=== PATIENT | male | born 1945 | race Caucasian/White ===

== ENCOUNTER 2018-06-25 21:03 | Emergency (ER) | payer MEDICARE, OTHER ==
[~2018-06-25] VITALS: Ht 180.3 cm; Wt 122.5 kg
[2018-06-25] MEDS ORDERED: LISI20 PO (21:24)
[2018-06-25] MEDS ORDERED: CHOLESTEROL (21:25)
[2018-06-25] MEDS ORDERED: ANTIBIOTICS (21:25)
== END 2018-06-26 00:10 | disposition home or self-care (01) ==
LOC: ER 21:03
DX: S01.81XA Laceration without foreign body of other part of head, initial encounter (principal); Z79.899 Other long term (current) drug therapy; W22.8XXA Striking against or struck by other objects, initial encounter
CPT/HCPCS: 12011; 99282

== ENCOUNTER 2020-06-26 21:12 | Inpatient (IN) | payer MEDICARE, OTHER ==
[~2020-06-26] VITALS: Ht 182.9 cm; Wt 172.4 kg
[~2020-06-26 21:12] MED LIST: ANTIBIOTICS; ATOR40TA PO; LISI20 PO
[2020-06-26 21:55] LABS: BASOPHILS ABSOLUTE AUTO 0.05 K/mm3 (0.00-0.23); BASOPHILS PERCENT AUTO 1 % (0-2); EOSINOPHILS ABSOLUTE AUTO 0.33 K/mm3 (0.00-0.68); EOSINOPHILS PERCENT AUTO 4 % (0-6); Hematocrit 46.2 % (37.0-53.0); IMMATURE GRAN ABSOLUTE AUTO 0.03 K/mm3 (0.00-0.10); IMMATURE GRAN PERCENT AUTO 0 % (0-1); LYMPHOCYTES PERCENT AUTO 18 % (21-46); MONOCYTES ABSOLUTE AUTO 1.04 K/mm3 (0.16-1.47); MONOCYTES PERCENT AUTO 13 % (4-13); Mean Corpuscular HGB 30.7 pg (26.0-34.0); Mean Corpuscular HGB Conc 32.5 g/dL (31.5-36.5); Mean Corpuscular Volume 95 fL (80-100); Mean Platelet Volume 9.9 fL (9.1-12.4); NEUTROPHILS ABSOLUTE AUTO 5.03 K/mm3 (1.96-9.15); NEUTROPHILS PERCENT AUTO 64 % (41-73); Platelet Count 287 K/mm3 (150-400); RDW Coefficient Variation 14.1 % (11.7-14.2); RDW Standard Deviation 49.1 fL (35.1-46.3); Red Blood Cell Count 4.89 M/mm3 (4.30-5.90); White Blood Cell Count 7.88 K/mm3 (4.00-11.30)
[2020-06-26 22:16] LABS: Alanine Aminotransfer (ALT/SGP 24 U/L (12-78); Albumin, Blood 3.2 g/dL (3.4-5.0); Albumin/Globulin Ratio 0.8 (0.8-1.8); Alk Phos 112 U/L (50-136); Anion Gap 6 mmol/L (6-16); Aspartate Aminotrans (AST/SGOT 21 U/L (12-37); Bilirubin, Total 0.4 mg/dL (0.1-1.0); Blood Urea Nitrogen 13 mg/dL (8-24); Bun/Creatinine Ratio 12.5 (12.0-20.0); CO2, Blood 24 mmol/L (21-32); Calcium, Blood 8.6 mg/dL (8.5-10.1); Chloride, Blood 113 mmol/L (98-108); Creatinine, Blood 1.04 mg/dL (0.60-1.20); Globulin, Blood 4.2 g/dL (2.2-4.0); Glomerular Filtration Rate >60 (60-); Glucose, Blood 107 mg/dL (70-99); Potassium, Blood 4.5 mmol/L (3.5-5.5); Sodium, Blood 143 mmol/L (136-145); Total Protein, Blood 7.4 g/dL (6.4-8.2); Troponin I 0.129 ng/mL (0.000-0.040)
[2020-06-26 23:31] LABS: CHOL/HDL RATIO 5.1; Cholesterol 177 mg/dL (50-200); HDL Cholesterol 35 mg/dL (>39); LDL/HDL RATIO 2.6; Low Density Lipoprotein Chol 91 mg/dL (0-110); Triglycerides 257 mg/dL (30-160); Very Low Density Lipoprot Chol 51 mg/dL (6-32)
--- NOTE | 2020-06-27 05:42 | NUR ---
SHIFT SUMMARY: LIZA IS A&OX4. VSS, NO ACUTE EVENTS OVERNIGHT. HE IS UTILIZING THE CPAP PROVIDED BY RT. HE DENIES CHEST PAIN, SOB, PRESSURE, OR ARM/JAW PAIN. HE HAS URINATED FREQUENTLY AFTER RECEIVING LASIX. NSR PER TELE MONITOR. PT STATES THAT HE HAS BEEN NPO SINCE FINISHING DINNER AT 1800 YESTERDAY EVENING. MACHINE OPERATOR PICKER PHYSICIAN NOTIFIED OF CRITICAL TROPONIN LEVEL OF 4.06, NO NEW ORDERS AT THIS TIME. LIZA USES HIS CALL LIGHT APPROPRIATELY. HE IS LYING IN BED WITH THE CALL LIGHT IN REACH. WILL REPORT TO DAY SHIFT RN.
--- NOTE | 2020-06-27 10:34 | NUR ---
PT ALERT AND ORIENTED. VITALS HRR SINUS WITH PAC'S TO SINUS EVONNE 50-60'S, BP SYSTOLIC 150-160'S, SATS ABOVE 95% ON RA, AFEBRILE. PT DENIES ANY CHEST PAIN THIS MORNING LAST TROP 4.060, DR MOLINA SAW PT THIS MORNING DISCUSSED THE NEED FOR ANGIOGRAM TODAY, PT WAS KEPT NPO. AT BEDSIDE AWARE OF THE PLANS. AWAITING FOR DIAL MOUNTER PROCEDURE.
--- NOTE | 2020-06-27 12:08 | NUR ---
PT TAKEN TO PATROL DRIVER FOR PROCEDURE AT THIS TIME.
--- NOTE | 2020-06-27 13:56 | NUR ---
PT CAME BACK FROM PROGRAM WRITER WITH RIGHT RADIAL ACCESS SITE. TR BAND WITH 10CC OF AIR IN PLACE. SITE INTACT WITH NO HEMATOMA/BLEEDING NOTED. PT HAS MULTIPLE VESSEL DSE AND IS FOR COBRA TRANSFER TO [facility]. HEPARIN RESTARTED PER ORDER AT 13U/KG/HR. NS AT 200MLS/HR FOR CONTRAST FLUSH. VITALS HRR SINUS EVONNE ON THE 50'S, BP SYSTOLIC 140-150'S, SATS ABOVE 95% ON RA. AWAITING FOR COVID RESULT AND ROOM FOR TRANSFER, AT BEDSIDE AWARE OF ALL THE PLAN. WILL MONITOR UNTIL TRANSFER.
--- NOTE | 2020-06-27 15:21 | NUR ---
PT TRANSPORTED TO [facility] VIA AMBULANCE. HEPARIN GTT RUNNING AT 13UKG/HR. 6CC OF AIR LEFT IN THE TR BAND, 4 CCS OUT. REPORT GIVEN TO KIRT CARR AT [facility].
== END 2020-06-27 15:17 | disposition short-term general hospital (02) | DRG 280 ==
LOC: ER 21:12 → PCU 23:06
PROVIDERS: Emergency Medicine; ADMIT Family Medicine
PROC: 4A023N7 Measurement of Cardiac Sampling and Pressure, Left Heart, Percutaneous Approach (ICD-10-PCS; principal; 2020-06-27)
PROC: B211YZZ Fluoroscopy of Multiple Coronary Arteries using Other Contrast (ICD-10-PCS; 2020-06-27)
DX: I21.4 Non-ST elevation (NSTEMI) myocardial infarction (principal); I50.33 Acute on chronic diastolic (congestive) heart failure; I16.1 Hypertensive emergency; I11.0 Hypertensive heart disease with heart failure; E78.5 Hyperlipidemia, unspecified; G47.33 Obstructive sleep apnea (adult) (pediatric); E66.01 Morbid (severe) obesity due to excess calories
CPT/HCPCS: 36415; 71045; 80053; 80061; 83880; 84484; 85025; 85730; 93005; 93010; 93458; 94660; 94762; 96374; 99152; 99153; 99285-25; C1769; C1894; C8929; J1644; J1940; J2250; J3010; J7030; J7050; Q9957; Q9967; U0003

== ENCOUNTER 2020-12-27 06:58 | Day surgery (SDC) | payer MEDICARE, OTHER ==
[~2020-12-27] VITALS: Ht 180.3 cm; Wt 183.5 kg
[~2020-12-27 06:58] MED LIST changes: +AMLO5 PO; +ASPI81CH PO; +CLOP75 PO; +FOLI1 PO; +FURO20 PO; +METO100ER PO; +OMEGA 3 PO; +SENNA LAXATIVE8.6 MG PO; +Vitamin E200 UNIT PO
--- NOTE | 2020-12-27 07:39 | NUR ---
PT TO SDS VIA WC. History, Chart, Medications and Allergies reviewed before start of procedure. Lungs clear T/O to Auscultation, INCRASED SOB c EXERTION. Patient confirms NPO status and agrees with scheduled surgery. L WRIST CLIPPED AND PREPPED.
--- NOTE | 2020-12-27 08:10 | NUR ---
12/27/20 0810 KIARRA,ELDER TOURNIQUET PLACED ON PTS LEFT FOREARM BY DR WISDOM PRIOR TO PROCEDURE. TOURNIQUET UP TO 250 AT 0754, DOWN AT 0800.
--- NOTE | 2020-12-27 08:26 | NUR ---
PT AWAKE AND FOLLOWING COMMANDS. PT DENIES PAIN. PT DOES NOT WANT PO FLUIDS. REPOSTIONED TO SEMI [place]EN WITH ASSISTANCE. LEFT HAND PINK, WARM WITH CAP REFILL LESS THAN 3 SECONDS. HAND ELEVATED ABOVE HEART. PROVIDED ICE PACK TO LEFT WRIST. Dressing to procedure site clean, dry, intact with no visible drainage, swelling, erythema or bruising noted.
--- NOTE | 2020-12-27 08:56 | NUR ---
CIRCULATION REMAINS INTACT TO LEFT LOWER EXTREMITY. Patient up to Ambulate independently. Gait steady. Discharge instructions reviewed with patient. Patient verbalizes understanding. Copy given to patient to take home. Dressing to procedure site clean, dry, intact with no visible drainage, swelling, erythema or bruising noted. Patient States Post-Procedure ride home has been arranged. Discharged via wheelchair to private car for ride home. DR WISDOM INSTRUCTED PT TO RESTART PLAVIX TODAY AND ALL OTHER MEDS. ALL BELONINGS RETURNED TO PATIENT.
== END 2020-12-27 09:11 | disposition home or self-care (01) ==
LOC: ORSCMMR 06:58 → ORD 07:30 → ORSCMMR 07:30
PROVIDERS: Orthopaedic Surgery
PROC: 01N50ZZ Release Median Nerve, Open Approach (ICD-10-PCS; principal; 2020-12-27 07:30)
DX: G56.02 Carpal tunnel syndrome, left upper limb (principal); I10 Essential (primary) hypertension; E78.5 Hyperlipidemia, unspecified; I25.10 Atherosclerotic heart disease of native coronary artery without angina pectoris; I25.2 Old myocardial infarction; G47.33 Obstructive sleep apnea (adult) (pediatric); Z87.891 Personal history of nicotine dependence; E66.01 Morbid (severe) obesity due to excess calories; Z68.43 Body mass index [BMI] 50.0-59.9, adult; Z79.01 Long term (current) use of anticoagulants; Z79.82 Long term (current) use of aspirin; Z79.899 Other long term (current) drug therapy
CPT/HCPCS: J0690; J2250; J2704; J3010; J7120

== ENCOUNTER 2022-09-01 10:24 | Inpatient (IN) | payer MEDICARE, OTHER ==
[~2022-09-01] VITALS: Ht 182.9 cm; Wt 178.3 kg
[~2022-09-01 10:24] MED LIST changes: -OMEGA 3 PO; +OMEGA-3 FISH O1 EA13 PO; +VITAMIN E90 M1 PO; -Vitamin E200 UNIT PO
[2022-09-01 12:00] LABS: BASOPHILS ABSOLUTE AUTO 0.04 K/mm3 (0.00-0.23); BASOPHILS PERCENT AUTO 0 % (0-2); EOSINOPHILS ABSOLUTE AUTO 0.01 K/mm3 (0.00-0.68); EOSINOPHILS PERCENT AUTO 0 % (0-6); Hematocrit 46.6 % (37.0-53.0); Hemoglobin 15.7 g/dL (13.5-17.5); IMMATURE GRAN ABSOLUTE AUTO 0.07 K/mm3 (0.00-0.10); IMMATURE GRAN PERCENT AUTO 1 % (0-1); LYMPHOCYTES ABSOLUTE AUTO 0.71 K/mm3 (0.84-5.20); LYMPHOCYTES PERCENT AUTO 6 % (21-46); MONOCYTES ABSOLUTE AUTO 1.42 K/mm3 (0.16-1.47); MONOCYTES PERCENT AUTO 11 % (4-13); Mean Corpuscular HGB Conc 33.7 g/dL (31.5-36.5); Mean Corpuscular Volume 92 fL (80-100); Mean Platelet Volume 9.3 fL (9.1-12.4); NEUTROPHILS ABSOLUTE AUTO 10.29 K/mm3 (1.96-9.15); NEUTROPHILS PERCENT AUTO 82 % (41-73); Platelet Count 264 K/mm3 (150-400); RDW Coefficient Variation 14.5 % (11.7-14.2); RDW Standard Deviation 49.4 fL (35.1-46.3); Red Blood Cell Count 5.07 M/mm3 (4.30-5.90); White Blood Cell Count 12.54 K/mm3 (4.00-11.30)
[2022-09-01 12:25] LABS: Albumin, Blood 3.2 g/dL (3.4-5.0); Albumin/Globulin Ratio 0.7 (0.8-1.8); Bilirubin, Total 0.7 mg/dL (0.1-1.0); Bun/Creatinine Ratio 20.2 (12.0-20.0); Calcium, Blood 9.1 mg/dL (8.5-10.1); Creatinine, Blood 0.99 mg/dL (0.60-1.20); Globulin, Blood 4.7 g/dL (2.2-4.0); Potassium, Blood 4.1 mmol/L (3.5-5.5); Total Protein, Blood 7.9 g/dL (6.4-8.2)
[2022-09-01] MEDS ORDERED: GLUC500 PO (13:04)
[2022-09-01 13:13] LABS: Source, Urine Clean Catch
[2022-09-01 13:21] LABS: Appearance, Urine Clear (Clear); Bilirubin, Urine Neg (Neg); Blood, Urine 3+ (Neg); Color, Urine Yellow (P-Yellow); Glucose Qualitative, Urine Neg (Neg); Ketones, Urine Neg (Neg); Leukocyte Esterase, Urine Neg (Neg); Nitrite, Urine Neg (Neg); Protein, Urine 3+ (Neg); Urobilinogen, Urine NORM (Normal)
[2022-09-01 13:30] LABS: Amorphous Light (0-Heavy); Bacteria Few /hpf; Hyaline Casts 0-2 /lpf (0-2); Mucus Mod (0-Heavy); Red Blood Cells, Urine 0-2 /hpf (0-2); Squamous Epithelial Cells Few /hpf (Few); White Blood Cells, Urine 0-2 /hpf (0-5)
[2022-09-01 13:31] LABS: Renal Epithelial Rare /hpf (0-Rare)
[2022-09-01 13:43] LABS: Influenza A, PCR NEGATIVE (NEGATIVE); Influenza B, PCR NEGATIVE (NEGATIVE); Resp Syncytial Virus, PCR NEGATIVE (NEGATIVE); SARS-Cov-2 (COVID-19) PCR, MMC NEGATIVE (NEGATIVE)
[2022-09-01] MEDS ORDERED: AMOCLA875 PO (14:22)
--- NOTE | 2022-09-01 18:16 | NUR ---
Arrived to floor from ED. Report received from LILLY Blake. A/O, transferred self to bed. 1p FWW to bathroom. 2nd RN skin check performed by LILLY Resendiz. Settled to room. Dinner tray ordered, eating well independently. Nystatin also ordered for yeasty infection on gluteal cleft per T.O. from Dr. Stewart. Patient refusing night time dose of lasix, states only takes 20mg in the morning and he did not want to be up all night. HR between 100-115's. When patient was eating, HR did touch up to 130's briefly without sustaining per tele. 2L O2. to bring in CPAP.
[2022-09-02 05:21] LABS: Hematocrit 43.6 % (37.0-53.0); Hemoglobin 14.2 g/dL (13.5-17.5); Mean Corpuscular HGB 30.8 pg (26.0-34.0); Mean Corpuscular HGB Conc 32.6 g/dL (31.5-36.5); Mean Corpuscular Volume 95 fL (80-100); Mean Platelet Volume 9.7 fL (9.1-12.4); Platelet Count 241 K/mm3 (150-400); RDW Coefficient Variation 14.7 % (11.7-14.2); RDW Standard Deviation 51.5 fL (35.1-46.3); Red Blood Cell Count 4.61 M/mm3 (4.30-5.90); White Blood Cell Count 11.46 K/mm3 (4.00-11.30)
[2022-09-02 06:00] LABS: Bun/Creatinine Ratio 18.1 (12.0-20.0); Calcium, Blood 8.4 mg/dL (8.5-10.1); Creatinine, Blood 1.16 mg/dL (0.60-1.20); Potassium, Blood 4.1 mmol/L (3.5-5.5)
--- NOTE | 2022-09-02 12:01 | NUR ---
PT IS ON ROOM AIR. SPOT CHECKS, HE IS ON CONTINUOUS TELEMETRY, INDICATE THAT HE IS MAINTAING SATS >94% WITH HEART RATE IN THE 60'S.
--- NOTE | 2022-09-02 19:41 | NUR ---
SHIFT SUMMARY LIZA'S BROUGHT IN HIS HOME CPAP MACHINE, WHICH WAS CHECKED BY [facility]. PT USES IT WHEN HE SLEEPS. PT CONTINUED TODAY ON OXYGEN 2LPM VIA NC. LUNGS CLEAR BUT DIMINISHED. WORKED WITH PHYSICAL THERAPY. VSS. CONTINUOUS PULSE OX, AND MONITORED BY TELEMETRY. PLAN IS TO POSSIBLY DISCHARGE TOMORROW TO HOME. IV ACCESS TO THE LEFT FOREARM. PT A & O, USES CALL LIGHT APPROPRIATELY.
--- NOTE | 2022-09-03 04:02 | NUR ---
SUMMARY: PT A/OX3, SPECIFIES NEEDS APPROPRIATELY AND IS PLEASANT AND COOPERATIVE W/CARE. 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 HE'S ON 2L O2 VIA NC AT BASELINE AND RT COMMENCED 2L O2 BLEED IN VIA HOME CPAP D/T DESATS TO 80'S% WHILE SLEEPING. CONT BIOX IS INTACT AND RESPS ARE E/U AT REST BUT HE REMAINS SOB W/EXERTION. PT'S BEEN NSR AT 60'S-70'S BPM ON TELEMETRY. TYLENOL PROVIDED FOR TOLERABLE RELIEF OF L.LEG PAIN AND NYSTATIN CREAM APPLIED TO REDDENED GLUTEAL CLEFT. NO ACUTE CHANGES. VSS/AFEBRILE. POSSIBLE D/C TODAY BUT HE WILL LIKELY NEED HOME O2 EVAL PRIO. SUSAN AND REPORT TO DAY RN.
--- NOTE | 2022-09-03 18:30 | NUR ---
SHIFT SUMMARY PT AxOx4. PLEASANT AND COOPERATIVE WITH CARE. PT WEANED FROM O2 NC THIS SHIFT WITHOUT DIFFICULTY BREATHING AT REST. PT DOES DESAT AND BECOME SOB WITH ACTIVITY. HOME O2 EVAL ORDER PENDING DISCHARGE DATE AT THIS TIME. PT HAD PRELIM POSITIVE BLOOD CULTURES COME BACK TODAY. PT RECEIVING IV ABX. PT DENIES PAIN THIS SHIFT. VITALS REVIEWED. PT IS CURRENTLY RESTING IN BED WITH CALL LIGHT IN REACH. DENIES ANY NEEDS AT THIS TIME.
--- NOTE | 2022-09-04 05:54 | NUR ---
SUMMARY PT HAD NO NEW ISSUES NOTED. PT DENIES CX PAIN OR INCREASED SOB. PT HAS BEEN SLEEPING WELL THIS SHIFT. PT HAS BEEN UP TO VOID WITHOUT ISSUE. PT SLEPT WITH HIS CPAP ON. PT SLEEPING IN NO DISTRESS.
[2022-09-04] MEDS ORDERED: AMOCLA875 PO (11:46)
--- NOTE | 2022-09-04 15:01 | NUR ---
DISCHARGE SUMMARY: PATIENT REPORTED SOME SHORTNESS OF BREATH WITH OOB ACTIVITY. PATIENT REPORTED THAT IT IS IMPROVED. PATIENT AMBULATED WITH RT FOR HOME O2 EVALUATION. NO O2 REQUIRED AT THIS TIME. PATIENT TOLERATED WELL. PATIENT IS READY FOR DISCHARGE. [facility]IENT [facility]QUEST. DISCHARGE INSTRUCTIONS AND EDUCATION PROVIDED. ALL QUESTIONS AND CONCERNS ADDRESSED. PATIENT DISCHARGED WITH MANAGER OF MERCHANDISING IN WHEELCHAIR. PATIENT STABLE AT TIME OF DISCHARGE.
== END 2022-09-04 12:50 | disposition home or self-care (01) | DRG 871 ==
LOC: ER 10:24 → ERHOLD 15:40 → MEDS 15:40
PROVIDERS: Emergency Medicine; Student in an Organized Health Care Education/Training Program; ADMIT Internal Medicine
PROC: 3E03329 Introduction of Other Anti-infective into Peripheral Vein, Percutaneous Approach (ICD-10-PCS; principal; 2022-09-01)
PROC: 5A09357 Assistance with Respiratory Ventilation, Less than 24 Consecutive Hours, Continuous Positive Airway Pressure (ICD-10-PCS; 2022-09-03)
DX: A41.89 Other specified sepsis (principal); J18.9 Pneumonia, unspecified organism; J96.01 Acute respiratory failure with hypoxia; I50.32 Chronic diastolic (congestive) heart failure; I11.0 Hypertensive heart disease with heart failure; E78.5 Hyperlipidemia, unspecified; G47.33 Obstructive sleep apnea (adult) (pediatric); I35.0 Nonrheumatic aortic (valve) stenosis; I25.10 Atherosclerotic heart disease of native coronary artery without angina pectoris; Z20.822 Contact with and (suspected) exposure to COVID-19; Z87.891 Personal history of nicotine dependence; Z95.1 Presence of aortocoronary bypass graft; Z98.890 Other specified postprocedural states; Z95.2 Presence of prosthetic heart valve; Z79.82 Long term (current) use of aspirin; Z79.2 Long term (current) use of antibiotics; Z79.01 Long term (current) use of anticoagulants; Z79.899 Other long term (current) drug therapy
CPT/HCPCS: 0241U; 36415; 71045; 80048; 80053; 81001; 83690; 83880; 84484; 85025; 85027; 87040; 93005; 93010; 94660; 94761; 94762; 96365; 96375; 97161; 99285-25; A9270; J0696; J1650; J2405